=== PATIENT | female | born 1970 | race American Indian/Alaskan Native ===

== ENCOUNTER 2017-06-22 00:12 | Emergency (ER) | payer SELFPAY ==
[2017-06-22] MEDS ORDERED: CATAPRES ONE (00:32)
[2017-06-22] MEDS ORDERED: CATAPRES PO ONE (00:34)
[2017-06-22 01:22] LABS: Basophils % (Auto) 0.3 % (0.0-1.8); Eosinophils % (Auto) 2.5 % (0.0-4.3); Hematocrit 37.9 % (30.3-42.9); Mean Corpuscular HGB Conc 34 % (30-34); Mean Corpuscular Hemoglobin 30 pg (28-32); Mean Corpuscular Volume 86 fl (79-97); Platelet Count 286 K/mm3 (140-440); Red Cell Distribution Width 13.4 % (13.2-15.2)
[2017-06-22 01:32] LABS: Anion Gap 21 mmol/L; BUN/Creatinine Ratio 14; Blood Urea Nitrogen 11 mg/dL (7-17); Calcium 9.7 mg/dL (8.4-10.2); Carbon Dioxide 25 mmol/L (22-30); Chloride 92.6 mmol/L (98-107); Glucose 468 mg/dL (65-100); Potassium 4.4 mmol/L (3.6-5.0); Sodium 134 mmol/L (137-145)
[2017-06-22] MEDS ORDERED: NACL 0.9% 1000 ML 1,000 ML IV ONE (01:53)
[2017-06-22 02:02] LABS: INR 0.9 (0.87-1.13)
[2017-06-22 02:03] LABS: Partial Thromboplastin Time 24.7 Sec. (24.2-36.6)
--- NOTE | 2017-06-22 02:04 | Emergency Department Report ---
HPI - General Chief Complaint: High BP Time Seen by Provider: 06/22/17 01:48 - HPI HPI: This is a 47-year-old -[place] female presents to the emergency department from home with a 3 day history of a headache. The headache starts at the top of the forehead and radiates towards the back of the head. She has some nonspecific dizziness, nausea without vomiting. She denies any slurred speech or any other neurological deficits. She presents with very elevated blood pressure and elevated blood sugar. She has a history of hypertension but has been out of her blood pressure medications for almost 2 months. She is completely out of the losartan and has been taking the few carvedilol she has left sparingly. She also is a [id number] diabetic and has been taking some of her metformin and has been out of the Onglyza. She does not have a primary care physician. No recent travel or sick contacts at home. She denies any tobacco or illicit drug use. She tried ibuprofen once for her headache without any relief. ED Past Medical Hx - Past Medical History Previous Medical History?: Yes Hx Hypertension: Yes (Out of Rx) Hx Diabetes: Yes (NIDDM) - Surgical History Past Surgical History?: Yes Hx Cholecystectomy: Yes Additional Surgical History: Hyst. Toe. Left Shoulder - Social History Smoking Status: Never Smoker Substance Use Type: None - Medications Home Medications: Home Medications Medication Instructions Recorded Confirmed Last Taken Type Carvedilol [Coreg] 25 mg PO QDAY #30 tablet 06/22/17 Unknown Rx Fluticasone [Flonase] 1 spray NS QDAY 06/22/17 06/22/17 Unknown History Hydroxyzine HCl 10 mg PO BID 06/22/17 06/22/17 Unknown History Losartan/Hydrochlorothiazide 100 mg PO QDAY #30 tablet 06/22/17 Unknown Rx [Losartan-Hctz 100-25 mg Tab] Montelukast [Singulair] 10 mg PO QPM 06/22/17 06/22/17 Unknown History Pravastatin Sodium [Pravastatin] 80 mg PO QHS 06/22/17 06/22/17 Unknown History Saxagliptin HCl [Onglyza] 2.5 mg PO QDAY #30 tablet 06/22/17 Unknown Rx Saxagliptin HCl [Onglyza] 5 mg PO QDAY 06/22/17 06/22/17 Unknown History metFORMIN [Glucophage] 1,000 mg PO BID #60 tablet 06/22/17 Unknown Rx ED Review of Systems ROS: Stated complaint: HEADACHE X 3 DAYS Other details as noted in HPI Comment: All other systems reviewed and negative Constitutional: denies: chills, fever Eyes: denies: eye pain, eye discharge ENT: denies: ear pain, throat pain Respiratory: denies: cough, shortness of breath, wheezing Cardiovascular: denies: chest pain, palpitations Gastrointestinal: nausea. denies: abdominal pain, vomiting Genitourinary: denies: urgency, dysuria, discharge Musculoskeletal: denies: back pain, joint swelling, arthralgia Skin: denies: rash, lesions Neurological: headache. denies: numbness Physical Exam - Physical Exam Vital Signs: Vital Signs 06/22/17 06/22/17 06/22/17 00:15 00:34 01:53 Temperature 98.5 F 98.5 F Pulse Rate 62 62 71 Respiratory 20 18 Rate Blood Pressure 226/101 Blood Pressure 226/101 129/90 [Right] O2 Sat by Pulse 99 Oximetry Physical Exam: GENERAL: The patient is well-developed well-nourished. HENT: Normocephalic. Atraumatic. Patient has moist mucous membranes. EYES: Extraocular motions are intact. Pupils equal reactive to light bilaterally. No nystagmus. NECK: Supple. No meningitic signs are noted. There is no adenopathy noted. CHEST/LUNGS: Clear to auscultation. There is no respiratory distress noted. HEART/CARDIOVASCULAR: Regular. There is no tachycardia. There is no gallop rub or murmur. ABDOMEN: Abdomen is soft, nontender. Patient has normal bowel sounds. There is no abdominal distention. SKIN: Skin is warm and dry. NEURO: The patient is awake, alert, and oriented. The patient is cooperative. The patient has no focal neurologic deficits. The patient has normal speech. Cranial nerves II through XII grossly intact. MUSCULOSKELETAL: There is no tenderness or deformity. There is no limitation range of motion. There is no evidence of acute injury. ED Course Vital Signs 06/22/17 06/22/17 06/22/17 00:15 00:34 01:53 Temperature 98.5 F 98.5 F Pulse Rate 62 62 71 Respiratory 20 18 Rate Blood Pressure 226/101 Blood Pressure 226/101 129/90 [Right] O2 Sat by Pulse 99 Oximetry ED Medical Decision Making - Lab Data Result diagrams: 06/22/17 00:45 06/22/17 00:39 - Radiology Data Radiology results: report reviewed CT of the head does not show any acute intracranial process including no ischemia, shift, mass, bleeding or skull fracture. - Medical Decision Making 47-year-old female presents with a few days of a headache. She just presents with elevated blood pressure and elevated blood sugar with diabetes with medication noncompliance. She has some of the medication and has been using it sparingly. She does not appear to be in diabetic ketoacidosis. She was given some IV fluid and IV insulin and her blood sugar came down to a more reasonable level. CT of the head did not show any bleed, shift, mass or any acute process. She was given sling for discomfort as well as blood pressure and her blood pressure came down to a more reasonable level well and her headache is greatly improved. She does not have any focal, motor or sensory deficits in her cranial nerves are intact. She appeared safe for discharge home. She was given a refill for her diabetes and blood pressure medications. She understands the importance of keeping a blood sugar and blood pressure log to see if the medications are working and making sure that they are not working too well. She was given multiple referrals for primary care and will return to the ER with any worsening of her symptoms or any acute distress. - Differential Diagnosis DKA, brain bleed, tension headache, migraine Critical Care Time: No Critical care attestation.: If time is entered above; I have spent that time in minutes in the direct care of this critically ill patient, excluding procedure time. ED Disposition Clinical Impression: Uncontrolled hypertension, Noncompliance with medication regimen Headache Qualifiers: Headache chronicity pattern: episodic headache Intractability: not intractable Hyperglycemia due to type 2 diabetes mellitus Qualifiers: Diabetes mellitus shelter insulin use: without shelter use Qualified Code(s ): E11.65 - Type 2 diabetes mellitus with hyperglycemia Disposition: DC-01 TO HOME OR SELFCARE Is pt being admited?: No Condition: Stable Instructions: Acute Headache (ED), Hypertension (ED), Diabetic Hyperglycemia ( ED) Additional Instructions: These follow-up with a primary care physician or clinic. Try to stay away from foods that are high in salt and caffeinated products to help with your blood pressure. I am going to restart your blood pressure medications but you need to keep a blood pressure log to see if they are working and to make sure that they are not working too well and causing him to have low blood pressure. Try and stay away from foods that are high in sugar, carbohydrates and starches to help with your diabetes. I'm going to restart your diabetes medications but you need to keep a blood sugar log to make sure they are working and also to make sure it is not working too well and causing him to have low blood sugar/ hypoglycemia. Return to the emergency Department with any worsening of your symptoms or any acute distress. Prescriptions: Carvedilol [Coreg] 25 mg PO QDAY #30 tablet Losartan/Hydrochlorothiazide [Losartan-Hctz 100-25 mg Tab] 100 mg PO QDAY #30 tablet metFORMIN [Glucophage] 1,000 mg PO BID #60 tablet Saxagliptin HCl [Onglyza] 2.5 mg PO QDAY #30 tablet Referrals: PRIMARY CARE, [Primary Care Provider] - 3-5 Days KAITY ESCOBEDO MD [Staff Physician] - 3-5 Days CONCHA ALAMO MD [Staff Physician] - 3-5 Days [facility] [Outside] - 3-5 Days [facility] [Outside] - 3-5 Days [facility] [Outside] - 3-5 Days [facility] [Outside] - 3-5 Days Time of Disposition: 06:16
[2017-06-22] MEDS ORDERED: MORPHINE IV ONE (04:20)
[2017-06-22] MEDS ORDERED: NACL 0.9% 500 ML 500 ML IV ONE (04:29)
--- NOTE | 2017-06-22 05:20 | Cat Scan Report ---
FINAL REPORT EXAM: CT HEAD/BRAIN WO CON HISTORY: HTN, Dizzy, Blurred Vision TECHNIQUE: CT imaging acquired through the head without intravenous contrast. Transaxial reformations are provided. PRIORS: None. FINDINGS: The ventricles, cisterns and sulci are normal. No intraparenchymal or extra-axial mass, hemorrhage, or mass effect. Galindo and white-matter differentiation is within normal limits. Normal spherical shape of the globes. Paranasal sinuses and mastoid air cells are clear. No skull or facial fracture visualized. IMPRESSION: No acute intracranial abnormality.
[2017-06-22 06:35] VITALS: BP 133/90
== END 2017-06-22 06:30 | disposition home or self-care (01) ==
LOC: ED 00:12
DX: I10 Essential (primary) hypertension (principal); E11.65 Type 2 diabetes mellitus with hyperglycemia; Z91.14 Patient's other noncompliance with medication regimen
CPT/HCPCS: 36415; 70450; 80048; 82805; 82962; 84484; 85025; 85610; 85730; 93005; 93010; 96361; 96374; 96375; 96376; 99285; J2270; J7030; J1815